=== PATIENT | female | born 1970 ===

== ENCOUNTER 2017-04-29 09:49 | Day surgery (SDC) | payer BC ==
[2017-04-14 06:27] VITALS: BMI 49.9
[2017-04-29] MEDS ORDERED: Propofol 10 mg/ml Inj (20 ML) ONE (12:28)
[2017-04-29] MEDS ORDERED: Lidocaine Hydrochloride 10 ML INJ ONE (12:29)
[2017-04-29] MEDS ORDERED: Lidocaine Hydrochloride 5 ML INJ ONE (12:35)
[2017-04-29] MEDS ORDERED: Lactated Ringer's 1,000 ML IV ONE (12:35)
[2017-04-29 13:11] VITALS: TEMP 97.8; O2SAT 100
[2017-04-29 13:47] VITALS: BP 138/60; PULSE 60; RESP 16
== END 2017-04-29 14:05 | disposition home or self-care (01) ==
LOC: C.ENDO 09:49
PROVIDERS: ATTEND Internal Medicine Gastroenterology
DX: K29.70 Gastritis, unspecified, without bleeding (principal); K29.80 Duodenitis without bleeding
CPT/HCPCS: 43239; 88305; 88342; J2704; J7120